=== PATIENT | female | born 1990 | race Two or more races ===

== ENCOUNTER 2022-01-29 19:53 | Inpatient (IN) | payer MEDICARE, MEDICAID ==
[~2022-01-29] VITALS: Ht 162.6 cm; Wt 86.2 kg
[2022-01-30 03:41] LABS: CLARITY URINE CLEAR (CLEAR); COLOR URINE YELLOW (YELLOW); KETONES URINE TRACE (NEGATIVE); LEUKOCYTE ESTERASE URINE 1+ (NEGATIVE); NITRITE URINE NEGATIVE (NEGATIVE); OCCULT BLOOD URINE NEGATIVE (NEGATIVE); PROTEIN URINE NEGATIVE (NEGATIVE); SPECIFIC GRAVITY URINE 1.024 (1.005-1.030)
[2022-01-30 03:50] LABS: METHADONE URINE SCREEN NEGATIVE (NEGATIVE); OPIATES URINE SCREEN NEGATIVE (NEGATIVE); PHENCYCLIDINE URINE SCREEN NEGATIVE (NEGATIVE)
[2022-01-30 03:51] LABS: *AMPHETAMINES SCREEN URINE NEGATIVE (NEGATIVE); *BARBITURATES SCREEN URINE NEGATIVE (NEGATIVE); *BENZODIAZEPINES SCREEN URINE NEGATIVE (NEGATIVE); *COCAINE SCREEN URINE NEGATIVE (NEGATIVE); CANNABINOID URINE SCREEN NEGATIVE (NEGATIVE)
[2022-01-30 04:26] LABS: BASOPHILS % 0.8 % (0.0-2.0); EOSINOPHILS % 0.7 % (0.0-5.0); HEMATOCRIT. 41.4 % (36.0-48.0); HEMOGLOBIN. 14.2 g/dL (12.0-16.0); LYMPHOCYTES % 39.9 % (20.0-50.0); MEAN CORPUSCULAR HEMOGLOBIN 31.6 pg (28.0-32.0); MEAN PLATELET VOLUME 8.9 fl (7.4-10.4); MONOCYTES % 9.2 % (2.0-8.0); NEUTROPHILS % 49.4 % (40.0-76.0); PLATELET 65 x1000/uL (130-400); RED CELL DISTRIBUTION WIDTH 13.8 % (11.6-14.6)
[2022-01-30 04:27] LABS: CHLORIDE 104 mEq/L (98-107)
[2022-01-30 04:28] LABS: HCG SCREEN NEGATIVE
[2022-01-30] MEDS ORDERED: LACTULOSE 20G/30ML UDC PO ONE (04:30)
[2022-01-30 04:32] LABS: ETHANOL BLOOD < 10 mg/dL
[2022-01-30 04:36] LABS: CREATINE KINASE 56 IU/L (26-192)
[2022-01-30] MEDS ORDERED: ENOXAPARIN 40MG/0.4ML SYR SUBCUT SCH (08:30)
[2022-01-30] MEDS ORDERED: ONDANSETRON HCL 4MG/2ML INJ IV PRN (08:30)
[2022-01-30] MEDS ORDERED: ACETAMINOPHEN 325MG TABLET PO PRN (08:30)
[2022-01-30] MEDS ORDERED: LACTULOSE 20G/30ML UDC PO SCH (08:45)
[2022-01-30 09:00] VITALS: BP 148/91
[2022-01-30] MEDS ORDERED: ZIPR20CA12 MT (10:19)
[2022-01-30] MEDS ORDERED: CLOM50TA18 PO (10:19)
[2022-01-30] MEDS ORDERED: BENZ1TAB7 MT (10:19)
[2022-01-30] MEDS ORDERED: DIVA500T51 MT (10:19)
[2022-01-30] MEDS ORDERED: GLYC2TAB21 PO (10:19)
[2022-01-30] MEDS ORDERED: FAMO40TA7 PO (10:21)
[2022-01-30] MEDS ORDERED: CLON0.5T23 MT (10:21)
[2022-01-30] MEDS ORDERED: MULT-1146 MT (10:25)
[2022-01-30] MEDS ORDERED: BIFI10.52 MT (10:25)
[2022-01-30] MEDS ORDERED: ACET600C MT (10:25)
[2022-01-30] MEDS ORDERED: VITAMIN D (10:25)
[2022-01-30] MEDS: NITROFURANTOIN 100MG M/M CAPSULE PO SCH ×2 (10:54→21:33)
[2022-01-30] MEDS: DEXT 5%/0.45% NACL 1000ML 1,000 ML IV SCH ×2 (10:54→21:33)
[2022-01-30 12:00] VITALS: BP 144/95
[2022-01-30 16:00] VITALS: BP 135/88
[2022-01-30 20:00] VITALS: BP 145/82
[2022-01-30] MEDS: LORAZEPAM 2MG/ML CPJ IV PRN (21:33)
[2022-01-31] VITALS: BP 104/45
[2022-01-31] MEDS: LORAZEPAM 2MG/ML CPJ IV PRN (01:38)
[2022-01-31 04:00] VITALS: BP 140/88
[2022-01-31 06:48] LABS: BASOPHILS % 0.3 % (0.0-2.0); EOSINOPHILS % 0.2 % (0.0-5.0); HEMOGLOBIN. 14.4 g/dL (12.0-16.0); LYMPHOCYTES % 29.8 % (20.0-50.0); MEAN CORPUSCULAR HEMOGLOBIN 31.9 pg (28.0-32.0); MEAN CORPUSCULAR VOLUME 93.1 fL (81.0-99.0); MONOCYTES % 10.4 % (2.0-8.0); NEUTROPHILS % 59.3 % (40.0-76.0); RED BLOOD CELL COUNT 4.51 mill/uL (4.2-5.4); RED CELL DISTRIBUTION WIDTH 13.7 % (11.6-14.6)
[2022-01-31 06:50] LABS: CHLORIDE 98 mEq/L (98-107)
[2022-01-31 08:00] VITALS: BP 139/98
[2022-01-31] MEDS: NITROFURANTOIN 100MG M/M CAPSULE PO SCH (08:14)
[2022-01-31 09:45] LABS: PLATELET 70 x1000/uL (130-400)
[2022-01-31] MEDS ORDERED: SODIUM POLYSTYRENE SULFONATE 15 G/60 ML BOT PO NR (10:00)
[2022-01-31] MEDS ORDERED: FAMOTIDINE 20MG TABLET PO SCH (10:00)
[2022-01-31 10:07] VITALS: BP 135/88
[2022-01-31] MEDS ORDERED: CLONAZEPAM 0.5MG TABLET PO SCH (10:30)
[2022-01-31] MEDS ORDERED: ZIPRASIDONE HCL 20MG CAPSULE PO SCH (12:00)
[2022-01-31] MEDS ORDERED: BENZTROPINE MESYLATE 1MG TABLET PO SCH (12:00)
== END 2022-01-31 12:30 | disposition home or self-care (01) | DRG 689 ==
LOC: ER 19:53 → 8WST 01-30 05:31 → ENRESERV 01-30 08:08 → 8WST 01-30 09:28
PROVIDERS: ADMIT Hospitalist; ATTEND Hospitalist
DX: N39.0 Urinary tract infection, site not specified (principal); G92.8 Other toxic encephalopathy; E72.20 Disorder of urea cycle metabolism, unspecified; E87.1 Hypo-osmolality and hyponatremia; Q87.11 Prader-Willi syndrome; G40.909 Epilepsy, unspecified, not intractable, without status epilepticus; F41.9 Anxiety disorder, unspecified; F79 Unspecified intellectual disabilities; M41.9 Scoliosis, unspecified; F90.9 Attention-deficit hyperactivity disorder, unspecified type; E87.5 Hyperkalemia
CPT/HCPCS: 36415; 71045; 80053; 80165; 80185; 80305; 80320; 81003; 82140; 82550; 83605; 84443; 84703; 85025; 99285; J2060; G0480

== ENCOUNTER 2022-05-22 15:36 | Emergency (ER) | payer MEDICARE, MEDICAID ==
[~2022-05-22] VITALS: Ht 165.1 cm; Wt 66.0 kg
[~2022-05-22 15:36] MED LIST: ACET600C MT; BENZ1TAB7 MT; BIFI10.52 MT; CLOM50TA18 PO; CLON0.5T23 MT; DIVA500T51 MT; FAMO40TA7 PO; GLYC2TAB21 PO; MULT-1146 MT; VITAMIN D; ZIPR20CA12 MT
[2022-05-22 16:16] VITALS: BP 130/77
== END 2022-05-22 18:00 | disposition home or self-care (01) ==
LOC: ER 15:36
DX: S09.8XXA Other specified injuries of head, initial encounter (principal); R56.9 Unspecified convulsions; F90.9 Attention-deficit hyperactivity disorder, unspecified type; M41.9 Scoliosis, unspecified; F79 Unspecified intellectual disabilities; W01.0XXA Fall on same level from slipping, tripping and stumbling without subsequent striking against object, initial encounter; Y93.89 Activity, other specified; Y92.9 Unspecified place or not applicable
CPT/HCPCS: 99281

== ENCOUNTER 2022-06-14 10:26 | Inpatient (IN) | payer MEDICARE, MEDICAID ==
[~2022-06-14] VITALS: Ht 142.2 cm; Wt 97.8 kg
[2022-06-14 11:18] LABS: BG BASE EXCESS 6.6 mmol/L (-2.0-2.0); BG CARBOXYHEMOGLOBIN 1.3 % (0.5-1.5); BG DEOXYHEMOGLOBIN 12.5 % (0.0-5.0); BG FRACTION INSPIRED OXYGEN 21; BG HCO3 ACT 33.8 mmol/L (22.0-26.0); BG OXYGEN SATURATION 87.3 % (92.0-98.5); BG OXYHEMOGLOBIN 86.2 % (94.0-97.0); BG PCO2 60.3 mmHg (35.0-45.0); BG PH 7.367 (7.350-7.450); BG PO2 53.2 mmHg (75.0-100.0); BG SAMPLE SITE RIGHT RADIAL; BG TOTAL HEMOGLOBIN 13.8 g/dL (12.0-18.0); BG VENT MODE ROOM AIR
[2022-06-14 11:35] LABS: HEMATOCRIT. 39.2 % (36.0-48.0); MEAN CORPUSCULAR HEMOGLOBIN 31.2 pg (28.0-32.0); MEAN CORPUSCULAR VOLUME 94.1 fL (81.0-99.0); MEAN PLATELET VOLUME 7.4 fl (7.4-10.4); PLATELET 113 x1000/uL (130-400); RED BLOOD CELL COUNT 4.16 mill/uL (4.2-5.4); RED CELL DISTRIBUTION WIDTH 14.7 % (11.6-14.6)
[2022-06-14 11:42] LABS: CHLORIDE 93 mEq/L (98-107)
[2022-06-14 12:06] LABS: HCG SCREEN NEGATIVE
[2022-06-14 12:23] LABS: PLATELET ESTIMATE SLIGHTLY DECREASED
[2022-06-14] MEDS ORDERED: CEFEPIME 2,000 MG in DEXT 5% WATER 100 ML IV SCH (13:00)
[2022-06-14] MEDS ORDERED: VANCOMYCIN 1G PREMIX 200 ML IV ONE (13:00)
[2022-06-14] MEDS ORDERED: VANCOMYCIN 1G PREMIX 200 ML IV NR (14:45)
[2022-06-14] MEDS ORDERED: ONDANSETRON HCL 4MG/2ML INJ IV PRN (17:00)
[2022-06-14 17:03] LABS: CLARITY URINE CLEAR (CLEAR); COLOR URINE YELLOW (YELLOW); KETONES URINE NEGATIVE (NEGATIVE); LEUKOCYTE ESTERASE URINE NEGATIVE (NEGATIVE); NITRITE URINE NEGATIVE (NEGATIVE); OCCULT BLOOD URINE NEGATIVE (NEGATIVE); PH URINE 6.5 (4.5-8.0); PROTEIN URINE NEGATIVE (NEGATIVE); SPECIFIC GRAVITY URINE 1.017 (1.005-1.030)
[2022-06-14] MEDS: SODIUM CHLORIDE 0.9% 1,000 ML IV SCH (19:01)
[2022-06-14] MEDS: AMPICILLIN SOD/SULBACTAM NA 3 G in SODIUM CHLORIDE 0.9% 100 ML IV SCH (19:38)
[2022-06-14 21:05] VITALS: BP 129/76
[2022-06-15] VITALS: BP 108/70
[2022-06-15] MEDS: CEFEPIME 1,000 MG in DEXTROSE 5% WATER 50 ML IV SCH ×2 (00:56→06:39)
[2022-06-15] MEDS: VANCOMYCIN 1G PREMIX 200 ML IV SCH ×3 (02:03→21:28)
[2022-06-15 04:00] VITALS: BP 126/82
[2022-06-15] MEDS: ACETAMINOPHEN 325MG TABLET PO PRN ×2 (04:49→17:06)
[2022-06-15] MEDS: AMPICILLIN SOD/SULBACTAM NA 3 G in SODIUM CHLORIDE 0.9% 100 ML IV SCH ×2 (05:44→06:00)
[2022-06-15 08:00] VITALS: BP 124/70
[2022-06-15] MEDS: ZIPRASIDONE HCL 20MG CAPSULE PO SCH ×2 (08:59→16:12)
[2022-06-15] MEDS: BENZTROPINE MESYLATE 1MG TABLET PO SCH ×2 (08:59→16:12)
[2022-06-15] MEDS: SODIUM CHLORIDE 0.9% 1,000 ML IV SCH ×2 (10:00→21:30)
[2022-06-15] MEDS: FAMOTIDINE 20MG TABLET PO SCH (10:00)
[2022-06-15] MEDS: DIVALPROEX SODIUM 500MG ER TABLET PO SCH ×2 (10:05→16:12)
[2022-06-15 12:00] VITALS: BP 110/81
[2022-06-15] MEDS ORDERED: AMPICILLIN SOD/SULBACTAM NA 3 G in SODIUM CHLORIDE 0.9% 100 ML IV SCH (12:00)
[2022-06-15] MEDS ORDERED: ZIPR60CA6 PO (14:55)
[2022-06-15] MEDS ORDERED: PROM6.254 MT (15:00)
[2022-06-15] MEDS ORDERED: ACET600C PO (15:05)
[2022-06-15] MEDS ORDERED: MULT-1146 PO (15:06)
[2022-06-15] MEDS: PHENYLEPHRINE HCL 0.5% 15ML NASAL SPRAY BOTHNSTRLS PRN ×2 (15:13→23:07)
[2022-06-15] MEDS: PIPERACILLIN/TAZOBACTAM 3.375G in DEXT 5% WATER 50ML IV SCH ×2 (15:13→22:04)
[2022-06-15 16:00] VITALS: BP 133/88
[2022-06-15 20:00] VITALS: BP 120/81
[2022-06-15 21:30] LABS: HEMATOCRIT. 37.5 % (36.0-48.0); HEMOGLOBIN. 12.5 g/dL (12.0-16.0); MEAN CORPUSCULAR HEMOGLOBIN 31.2 pg (28.0-32.0); MEAN CORPUSCULAR VOLUME 93.7 fL (81.0-99.0); PLATELET 76 x1000/uL (130-400); RED BLOOD CELL COUNT 4.01 mill/uL (4.2-5.4); RED CELL DISTRIBUTION WIDTH 14.5 % (11.6-14.6)
[2022-06-15 21:47] LABS: CHLORIDE 91 mEq/L (98-107)
[2022-06-15 23:29] LABS: PLATELET ESTIMATE DECREASED
[2022-06-16] VITALS: BP 134/82
[2022-06-16 04:00] VITALS: BP 134/90
[2022-06-16] MEDS: PHENYLEPHRINE HCL 0.5% 15ML NASAL SPRAY BOTHNSTRLS PRN (04:29)
[2022-06-16] MEDS: PIPERACILLIN/TAZOBACTAM 3.375G in DEXT 5% WATER 50ML IV SCH (06:06)
[2022-06-16 06:20] LABS: CHLORIDE 86 mEq/L (98-107)
[2022-06-16 08:00] VITALS: BP 116/76
[2022-06-16] MEDS: IPRATROPIUM/ALBUTEROL 0.5-3(2.5)MG/3ML NEB HHN PRN (09:59)
[2022-06-16] MEDS: ZIPRASIDONE HCL 20MG CAPSULE PO SCH ×2 (10:22→18:02)
[2022-06-16] MEDS: BENZTROPINE MESYLATE 1MG TABLET PO SCH ×2 (10:23→18:02)
[2022-06-16] MEDS: FAMOTIDINE 20MG TABLET PO SCH (10:23)
[2022-06-16] MEDS: DIVALPROEX SODIUM 500MG ER TABLET PO SCH ×2 (10:23→18:03)
[2022-06-16] MEDS: VANCOMYCIN 1G PREMIX 200 ML IV SCH (11:08)
[2022-06-16 12:00] VITALS: BP 149/74
[2022-06-16] MEDS: CEFEPIME 1,000 MG in DEXTROSE 5% WATER 50 ML IV SCH ×2 (15:05→22:58)
[2022-06-16 16:00] VITALS: BP 99/76
[2022-06-16] MEDS: METRONIDAZOLE 500 MG PREMIX 100 ML IV SCH ×2 (16:02→21:27)
[2022-06-16 17:07] LABS: HEMATOCRIT. 34.8 % (36.0-48.0); HEMOGLOBIN. 11.7 g/dL (12.0-16.0); MEAN CORPUSCULAR HEMOGLOBIN 31.4 pg (28.0-32.0); MEAN CORPUSCULAR VOLUME 93.5 fL (81.0-99.0); MEAN PLATELET VOLUME 7.3 fl (7.4-10.4); PLATELET 70 x1000/uL (130-400); RED BLOOD CELL COUNT 3.73 mill/uL (4.2-5.4); RED CELL DISTRIBUTION WIDTH 14.1 % (11.6-14.6)
[2022-06-16 17:09] LABS: CHLORIDE 85 mEq/L (98-107)
[2022-06-16] MEDS: VANCOMYCIN 750MG PREMIX 150 ML IV SCH ×2 (18:03→21:27)
[2022-06-16 20:00] VITALS: BP 132/75
[2022-06-16] MEDS: SODIUM CHLORIDE 0.9% 1,000 ML IV SCH (21:30)
[2022-06-17] VITALS: BP 127/80
[2022-06-17 01:27] LABS: PLATELET ESTIMATE DECREASED
[2022-06-17 04:00] VITALS: BP 121/83
[2022-06-17] MEDS: PHENYLEPHRINE HCL 0.5% 15ML NASAL SPRAY BOTHNSTRLS PRN (04:17)
[2022-06-17] MEDS: IPRATROPIUM/ALBUTEROL 0.5-3(2.5)MG/3ML NEB HHN PRN (05:10)
[2022-06-17] MEDS: VANCOMYCIN 750MG PREMIX 150 ML IV SCH ×3 (05:28→21:35)
[2022-06-17] MEDS: METRONIDAZOLE 500 MG PREMIX 100 ML IV SCH ×3 (05:28→21:35)
[2022-06-17 07:08] LABS: CHLORIDE 92 mEq/L (98-107)
[2022-06-17 07:09] LABS: HEMATOCRIT. 35.2 % (36.0-48.0); MEAN CORPUSCULAR HEMOGLOBIN 31.5 pg (28.0-32.0); MEAN CORPUSCULAR VOLUME 92.6 fL (81.0-99.0); PLATELET 74 x1000/uL (130-400); RED CELL DISTRIBUTION WIDTH 14.2 % (11.6-14.6)
[2022-06-17 08:00] VITALS: BP 117/79
[2022-06-17] MEDS: FAMOTIDINE 20MG TABLET PO SCH (08:51)
[2022-06-17] MEDS: CEFEPIME 1,000 MG in DEXTROSE 5% WATER 50 ML IV SCH ×2 (08:51→21:35)
[2022-06-17] MEDS: DIVALPROEX SODIUM 500MG ER TABLET PO SCH ×2 (08:51→16:53)
[2022-06-17] MEDS: BENZTROPINE MESYLATE 1MG TABLET PO SCH ×2 (08:51→16:53)
[2022-06-17] MEDS: ZIPRASIDONE HCL 20MG CAPSULE PO SCH ×2 (08:51→16:53)
[2022-06-17] MEDS: SODIUM CHLORIDE 0.9% 1,000 ML IV SCH (11:40)
[2022-06-17 12:00] VITALS: BP 121/76
[2022-06-17 16:00] VITALS: BP 118/72
[2022-06-17 20:00] VITALS: BP 97/57
[2022-06-18] MEDS: SODIUM CHLORIDE 0.9% 1,000 ML IV SCH (00:06)
[2022-06-18 00:43] VITALS: BP 121/71
[2022-06-18] MEDS: IPRATROPIUM/ALBUTEROL 0.5-3(2.5)MG/3ML NEB HHN PRN (00:49)
[2022-06-18 02:21] LABS: PLATELET ESTIMATE DECREASED
[2022-06-18 04:00] VITALS: BP 131/78
[2022-06-18] MEDS: METRONIDAZOLE 500 MG PREMIX 100 ML IV SCH ×3 (05:06→21:01)
[2022-06-18] MEDS: VANCOMYCIN 750MG PREMIX 150 ML IV SCH ×2 (05:06→15:07)
[2022-06-18 07:32] LABS: CHLORIDE 97 mEq/L (98-107)
[2022-06-18 07:40] LABS: VANCOMYCIN TROUGH 11.7 ug/mL (5.0-10.0)
[2022-06-18 08:14] VITALS: BP 123/86
[2022-06-18] MEDS: CEFEPIME 1,000 MG in DEXTROSE 5% WATER 50 ML IV SCH ×2 (10:04→20:51)
[2022-06-18] MEDS: DIVALPROEX SODIUM 500MG ER TABLET PO SCH ×2 (10:05→17:17)
[2022-06-18] MEDS: BENZTROPINE MESYLATE 1MG TABLET PO SCH ×2 (10:05→17:17)
[2022-06-18] MEDS: FAMOTIDINE 20MG TABLET PO SCH (10:06)
[2022-06-18] MEDS: ZIPRASIDONE HCL 20MG CAPSULE PO SCH ×2 (10:06→17:18)
[2022-06-18 12:00] VITALS: BP 128/79
[2022-06-18] MEDS: GUAIFENESIN 600MG ER TABLET PO SCH ×2 (14:56→20:51)
[2022-06-18 16:00] VITALS: BP 127/79
[2022-06-18 20:00] VITALS: BP 128/74
[2022-06-19] VITALS: BP 103/71
[2022-06-19 04:00] VITALS: BP_SYST 108; BP_SYST 119; BP_DIAS 59; BP_DIAS 69
[2022-06-19 04:01] LABS: CHLORIDE 96 mEq/L (98-107)
[2022-06-19 04:08] LABS: VANCOMYCIN TROUGH 6.6 ug/mL (5.0-10.0)
[2022-06-19] MEDS: METRONIDAZOLE 500 MG PREMIX 100 ML IV SCH ×3 (05:09→22:30)
[2022-06-19] MEDS: SODIUM CHLORIDE 0.9% 1,000 ML IV SCH ×3 (05:12→22:30)
[2022-06-19 08:00] VITALS: BP 133/88
[2022-06-19] MEDS: ACETAMINOPHEN 325MG TABLET PO PRN (08:59)
[2022-06-19] MEDS: CEFEPIME 1,000 MG in DEXTROSE 5% WATER 50 ML IV SCH ×2 (09:00→21:41)
[2022-06-19] MEDS: FAMOTIDINE 20MG TABLET PO SCH (09:01)
[2022-06-19] MEDS: BENZTROPINE MESYLATE 1MG TABLET PO SCH ×2 (09:01→17:34)
[2022-06-19] MEDS: GUAIFENESIN 600MG ER TABLET PO SCH ×2 (09:01→21:41)
[2022-06-19] MEDS: ZIPRASIDONE HCL 20MG CAPSULE PO SCH ×2 (09:01→17:34)
[2022-06-19] MEDS: DIVALPROEX SODIUM 500MG ER TABLET PO SCH ×2 (09:01→17:34)
[2022-06-19] MEDS: IPRATROPIUM/ALBUTEROL 0.5-3(2.5)MG/3ML NEB HHN PRN (09:30)
[2022-06-19 12:00] VITALS: BP 126/83
[2022-06-19 12:45] LABS: BG BASE EXCESS 7.2 mmol/L (-2.0-2.0); BG CARBOXYHEMOGLOBIN 0.4 % (0.5-1.5); BG DEOXYHEMOGLOBIN 4.2 % (0.0-5.0); BG HCO3 ACT 33.8 mmol/L (22.0-26.0); BG METHEMOGLOBIN 0.1 % (0.0-1.5); BG OXYGEN SATURATION 95.8 % (92.0-98.5); BG OXYHEMOGLOBIN 95.3 % (94.0-97.0); BG PCO2 57.2 mmHg (35.0-45.0); BG PO2 83.7 mmHg (75.0-100.0); BG SAMPLE SITE RIGHT BRACHIAL; BG TOTAL HEMOGLOBIN 12.6 g/dL (12.0-18.0); BG VENT MODE NASAL CANNULA
[2022-06-19 16:00] VITALS: BP 134/85
[2022-06-19 20:00] VITALS: BP 101/66
[2022-06-20] VITALS: BP 121/65
[2022-06-20 04:00] VITALS: BP 121/69
[2022-06-20] MEDS: METRONIDAZOLE 500 MG PREMIX 100 ML IV SCH ×3 (06:23→21:40)
[2022-06-20 08:00] VITALS: BP 121/69
[2022-06-20] MEDS: BENZTROPINE MESYLATE 1MG TABLET PO SCH ×2 (09:00→17:56)
[2022-06-20] MEDS: FAMOTIDINE 20MG TABLET PO SCH (10:10)
[2022-06-20] MEDS: GUAIFENESIN 600MG ER TABLET PO SCH ×2 (10:10→20:42)
[2022-06-20] MEDS: ZIPRASIDONE HCL 20MG CAPSULE PO SCH ×2 (10:10→17:56)
[2022-06-20] MEDS: CEFEPIME 1,000 MG in DEXTROSE 5% WATER 50 ML IV SCH ×2 (10:12→20:43)
[2022-06-20 11:20] LABS: BG BASE EXCESS 4.8 mmol/L (-2.0-2.0); BG CARBOXYHEMOGLOBIN 0.3 % (0.5-1.5); BG DEOXYHEMOGLOBIN 13.8 % (0.0-5.0); BG HCO3 ACT 31.1 mmol/L (22.0-26.0); BG METHEMOGLOBIN 0.2 % (0.0-1.5); BG OXYGEN SATURATION 86.1 % (92.0-98.5); BG OXYHEMOGLOBIN 85.7 % (94.0-97.0); BG PCO2 54.1 mmHg (35.0-45.0); BG PH 7.378 (7.350-7.450); BG PO2 52.2 mmHg (75.0-100.0); BG SAMPLE SITE RIGHT RADIAL; BG TOTAL HEMOGLOBIN 12.4 g/dL (12.0-18.0); BG VENT MODE ROOM AIR
[2022-06-20 12:00] VITALS: BP 146/82
[2022-06-20] MEDS: DIVALPROEX SODIUM 500MG ER TABLET PO SCH ×2 (12:43→17:56)
[2022-06-20] MEDS: IPRATROPIUM/ALBUTEROL 0.5-3(2.5)MG/3ML NEB HHN SCH ×2 (14:57→22:21)
[2022-06-20 16:00] VITALS: BP 121/54
[2022-06-20 20:00] VITALS: BP 126/97
[2022-06-20 20:34] LABS: EOSINOPHILS % 0.9 % (0.0-5.0); HEMOGLOBIN. 12.9 g/dL (12.0-16.0); LYMPHOCYTES % 35.8 % (20.0-50.0); MEAN CORPUSCULAR HEMOGLOBIN 31.6 pg (28.0-32.0); MEAN CORPUSCULAR VOLUME 93.3 fL (81.0-99.0); MEAN PLATELET VOLUME 7.9 fl (7.4-10.4); MONOCYTES % 8.2 % (2.0-8.0); NEUTROPHILS % 54.1 % (40.0-76.0); PLATELET 58 x1000/uL (130-400); RED BLOOD CELL COUNT 4.07 mill/uL (4.2-5.4); RED CELL DISTRIBUTION WIDTH 14.3 % (11.6-14.6)
[2022-06-20] MEDS: SODIUM CHLORIDE 0.9% 1,000 ML IV SCH (20:43)
[2022-06-20 20:46] LABS: CHLORIDE 96 mEq/L (98-107)
[2022-06-20] MEDS ORDERED: NALOXONE HCL 0.4MG/ML VIAL IV PRN (23:45)
[2022-06-20] MEDS ORDERED: HYDROCODONE/ACETAMINOPHEN 10/325MG TABLET PO PRN (23:45)
[2022-06-21] VITALS (7 sets, daily range): BP systolic 107–133; BP diastolic 54–85
[2022-06-21] MEDS: IPRATROPIUM/ALBUTEROL 0.5-3(2.5)MG/3ML NEB HHN SCH ×2 (06:00→14:00)
[2022-06-21] MEDS: METRONIDAZOLE 500 MG PREMIX 100 ML IV SCH (06:11)
[2022-06-21] MEDS: SODIUM CHLORIDE 0.9% 1,000 ML IV SCH ×2 (06:15→20:47)
[2022-06-21] MEDS: ZIPRASIDONE HCL 20MG CAPSULE PO SCH ×2 (08:17→18:49)
[2022-06-21] MEDS: FAMOTIDINE 20MG TABLET PO SCH (08:17)
[2022-06-21] MEDS: DIVALPROEX SODIUM 500MG ER TABLET PO SCH ×2 (08:17→18:49)
[2022-06-21] MEDS: BENZTROPINE MESYLATE 1MG TABLET PO SCH ×2 (08:17→18:49)
[2022-06-21] MEDS: GUAIFENESIN 600MG ER TABLET PO SCH ×2 (08:18→20:47)
[2022-06-21] MEDS: METRONIDAZOLE 500MG TABLET PO SCH ×2 (14:45→20:47)
[2022-06-22] MEDS: IPRATROPIUM/ALBUTEROL 0.5-3(2.5)MG/3ML NEB HHN SCH ×3 (00:47→16:12)
[2022-06-22 04:00] VITALS: BP 121/64
[2022-06-22 08:00] VITALS: BP 123/76
[2022-06-22] MEDS: FAMOTIDINE 20MG TABLET PO SCH (08:29)
[2022-06-22] MEDS: DIVALPROEX SODIUM 500MG ER TABLET PO SCH ×2 (08:29→16:27)
[2022-06-22] MEDS: BENZTROPINE MESYLATE 1MG TABLET PO SCH ×2 (08:29→16:27)
[2022-06-22] MEDS: GUAIFENESIN 600MG ER TABLET PO SCH ×2 (08:29→21:36)
[2022-06-22] MEDS: ZIPRASIDONE HCL 20MG CAPSULE PO SCH ×2 (08:29→16:28)
[2022-06-22 08:51] LABS: BG BASE EXCESS 2.2 mmol/L (-2.0-2.0); BG CARBOXYHEMOGLOBIN 0.4 % (0.5-1.5); BG DEOXYHEMOGLOBIN 13.5 % (0.0-5.0); BG FRACTION INSPIRED OXYGEN 21; BG HCO3 ACT 27.3 mmol/L (22.0-26.0); BG METHEMOGLOBIN 1.2 % (0.0-1.5); BG OXYGEN SATURATION 86.3 % (92.0-98.5); BG OXYHEMOGLOBIN 84.9 % (94.0-97.0); BG PCO2 44.2 mmHg (35.0-45.0); BG PH 7.408 (7.350-7.450); BG PO2 52.5 mmHg (75.0-100.0); BG SAMPLE SITE RIGHT RADIAL; BG TOTAL HEMOGLOBIN 13.2 g/dL (12.0-18.0); BG VENT MODE ROOM AIR
[2022-06-22 12:00] VITALS: BP 111/68
[2022-06-22 16:00] VITALS: BP 115/85
[2022-06-22] MEDS: SODIUM CHLORIDE 0.9% 1,000 ML IV SCH (16:30)
[2022-06-22 20:00] VITALS: BP 120/70
[2022-06-23] VITALS: BP 124/70
[2022-06-23] MEDS: IPRATROPIUM/ALBUTEROL 0.5-3(2.5)MG/3ML NEB HHN SCH ×3 (00:42→17:30)
[2022-06-23 04:00] VITALS: BP 127/68
[2022-06-23 08:00] VITALS: BP 139/89
[2022-06-23] MEDS: BENZTROPINE MESYLATE 1MG TABLET PO SCH ×2 (09:23→17:05)
[2022-06-23] MEDS: DIVALPROEX SODIUM 500MG ER TABLET PO SCH ×2 (09:23→17:05)
[2022-06-23] MEDS: FAMOTIDINE 20MG TABLET PO SCH (09:24)
[2022-06-23] MEDS: GUAIFENESIN 600MG ER TABLET PO SCH ×2 (09:24→20:50)
[2022-06-23] MEDS: ZIPRASIDONE HCL 20MG CAPSULE PO SCH ×2 (09:24→17:05)
[2022-06-23 12:00] VITALS: BP 110/60
[2022-06-23] MEDS ORDERED: DEXTROSE 50% WATER 50ML SYRINGE IV PRN (12:30)
[2022-06-23] MEDS: BLOOD SUGAR DIAGNOSTIC STRIP TEST SCH ×3 (13:19→20:40)
[2022-06-23] MEDS: INSULIN LISPRO 100 UNITS/ML SUBCUT SCH ×3 (13:34→20:56)
[2022-06-23 16:00] VITALS: BP 117/54
[2022-06-23 19:49] LABS: CHLORIDE 95 mEq/L (98-107)
[2022-06-23 20:00] VITALS: BP 135/94
[2022-06-23 21:10] LABS: BASOPHILS % 0.3 % (0.0-2.0); EOSINOPHILS % 0.6 % (0.0-5.0); HEMATOCRIT. 35.5 % (36.0-48.0); HEMOGLOBIN. 11.7 g/dL (12.0-16.0); LYMPHOCYTES % 33.4 % (20.0-50.0); MEAN CORPUSCULAR HEMOGLOBIN 31.1 pg (28.0-32.0); MEAN CORPUSCULAR VOLUME 94.4 fL (81.0-99.0); MEAN PLATELET VOLUME 7.5 fl (7.4-10.4); NEUTROPHILS % 58.7 % (40.0-76.0); PLATELET 195 x1000/uL (130-400); RED BLOOD CELL COUNT 3.76 mill/uL (4.2-5.4); RED CELL DISTRIBUTION WIDTH 14.2 % (11.6-14.6)
[2022-06-24] VITALS: BP 117/100
[2022-06-24] MEDS: IPRATROPIUM/ALBUTEROL 0.5-3(2.5)MG/3ML NEB HHN SCH ×4 (00:30→17:03)
[2022-06-24 04:00] VITALS: BP 110/82
[2022-06-24] MEDS: BLOOD SUGAR DIAGNOSTIC STRIP TEST SCH ×4 (06:22→21:05)
[2022-06-24 08:00] VITALS: BP 136/87
[2022-06-24] MEDS: INSULIN LISPRO 100 UNITS/ML SUBCUT SCH ×4 (08:50→21:22)
[2022-06-24] MEDS: DIVALPROEX SODIUM 500MG ER TABLET PO SCH ×2 (09:02→18:13)
[2022-06-24] MEDS: ZIPRASIDONE HCL 20MG CAPSULE PO SCH ×2 (09:02→18:13)
[2022-06-24] MEDS: BENZTROPINE MESYLATE 1MG TABLET PO SCH ×2 (09:02→18:14)
[2022-06-24] MEDS: FAMOTIDINE 20MG TABLET PO SCH (09:02)
[2022-06-24] MEDS: GUAIFENESIN 600MG ER TABLET PO SCH ×2 (09:02→21:17)
[2022-06-24 13:35] VITALS: BP 146/71
[2022-06-24 16:00] VITALS: BP 124/81
[2022-06-24 17:15] LABS: INR 1.1; PARTIAL THROMBOPLASTIN TIME 21.4 sec (23.4-31.0); PROTHROMBIN TIME 11.4 sec (9.6-11.0)
[2022-06-24 20:00] VITALS: BP 103/47
[2022-06-25] VITALS: BP 116/42
[2022-06-25 04:00] VITALS: BP 97/52
[2022-06-25] MEDS: BLOOD SUGAR DIAGNOSTIC STRIP TEST SCH ×3 (06:28→17:58)
[2022-06-25] MEDS: INSULIN LISPRO 100 UNITS/ML SUBCUT SCH ×3 (07:50→18:00)
[2022-06-25 08:00] VITALS: BP 123/73
[2022-06-25] MEDS: GUAIFENESIN 600MG ER TABLET PO SCH (09:04)
[2022-06-25] MEDS: FAMOTIDINE 20MG TABLET PO SCH (09:04)
[2022-06-25] MEDS: DIVALPROEX SODIUM 500MG ER TABLET PO SCH ×2 (09:05→17:54)
[2022-06-25] MEDS: ZIPRASIDONE HCL 20MG CAPSULE PO SCH ×2 (09:05→17:54)
[2022-06-25] MEDS: BENZTROPINE MESYLATE 1MG TABLET PO SCH ×2 (09:05→17:54)
[2022-06-25] MEDS: IPRATROPIUM/ALBUTEROL 0.5-3(2.5)MG/3ML NEB HHN SCH (10:23)
[2022-06-25 12:00] VITALS: BP 114/64
[2022-06-25] MEDS ORDERED: METF-416 MT (13:32)
[2022-06-25] MEDS ORDERED: GLIP5TAB12 MT (13:32)
[2022-06-25 13:35] LABS: CLARITY URINE CLEAR (CLEAR); COLOR URINE YELLOW (YELLOW); KETONES URINE NEGATIVE (NEGATIVE); LEUKOCYTE ESTERASE URINE NEGATIVE (NEGATIVE); NITRITE URINE NEGATIVE (NEGATIVE); OCCULT BLOOD URINE 3+ (NEGATIVE); PROTEIN URINE TRACE (NEGATIVE); SPECIFIC GRAVITY URINE 1.035 (1.005-1.030)
[2022-06-25 16:00] VITALS: BP 111/78
[2022-06-25 17:37] VITALS: BP 111/78
[2022-06-25] MEDS ORDERED: GLIPIZIDE 5MG TABLET PO SCH (18:15)
== END 2022-06-25 19:23 | disposition home or self-care (01) | DRG 871 ==
LOC: ER 10:45 → 6WST 13:50 → EDBEDREQTM 13:57 → EDBEDREQ 13:57 → EDBEDREQSVC 13:57 → ENRESERV 19:23
PROVIDERS: ADMIT Internal Medicine; ATTEND Internal Medicine
DX: A41.9 Sepsis, unspecified organism (principal); E43 Unspecified severe protein-calorie malnutrition; J96.01 Acute respiratory failure with hypoxia; J18.9 Pneumonia, unspecified organism; J98.11 Atelectasis; E87.1 Hypo-osmolality and hyponatremia; E66.2 Morbid (severe) obesity with alveolar hypoventilation; Z68.42 Body mass index [BMI] 45.0-49.9, adult; T16.1XXA Foreign body in right ear, initial encounter; E11.9 Type 2 diabetes mellitus without complications; Z82.49 Family history of ischemic heart disease and other diseases of the circulatory system; T16.2XXA Foreign body in left ear, initial encounter; E87.8 Other disorders of electrolyte and fluid balance, not elsewhere classified; D69.6 Thrombocytopenia, unspecified; G40.909 Epilepsy, unspecified, not intractable, without status epilepticus; J40 Bronchitis, not specified as acute or chronic; R62.50 Unspecified lack of expected normal physiological development in childhood; X58.XXXA Exposure to other specified factors, initial encounter; Y93.9 Activity, unspecified; Y92.9 Unspecified place or not applicable; Y99.9 Unspecified external cause status; R04.0 Epistaxis
CPT/HCPCS: 36415; 36600; 70480; 71045; 71046; 78582; 80048; 80053; 80202; 81003; 82375; 82805; 82962; 83036; 83605; 83880; 84145; 84703; 85025; 85379; 86038; 87426; 87804; 93005; 93970; 94640; 94664; 97162; 99285; A9558; C1893; C9803; J0295; J0692; J1815; J2543; J3370; J3490; J7050; J7060; A4315